=== PATIENT | male | born 1970 | race Caucasian/White ===

== ENCOUNTER 2017-04-26 20:01 | Emergency (ER) | payer SELFPAY ==
[~2017-04-26] VITALS: Ht 165.1 cm; Wt 71.7 kg
[2017-04-26] MEDS ORDERED: FLUORESCEIN OPHTH TEST STRIP. OD ONE (20:15)
[2017-04-26] MEDS ORDERED: TETRACAINE 0.5% OPHTH SOLUTION 4ML BOTTLE. OS ONE (20:15)
[2017-04-26 20:18] VITALS: BP 117/65
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
[2017-04-26] MEDS ORDERED: HYDR-971 PO (21:11)
[2017-04-26] MEDS ORDERED: ERYTHROMYCIN 0.5% OPHTH OINTMENT 1GM TUBE. OD ONE (21:15)
[2017-04-26] MEDS ORDERED: HYDROcodone/APAP 5/325MG 1 TAB TABLET PO ONE (21:15)
[2017-04-26] MEDS ORDERED: DIPHTH,PERTUSS(ACELL),TET TOX 0.5 ML DISP.SYRIN. VAX IM ONE (21:15)
== END 2017-04-26 21:12 | disposition home or self-care (01) ==
LOC: ER 20:01
DX: S05.01XA Injury of conjunctiva and corneal abrasion without foreign body, right eye, initial encounter (principal); T26.11XA Burn of cornea and conjunctival sac, right eye, initial encounter; Z87.820 Personal history of traumatic brain injury; X17.XXXA Contact with hot engines, machinery and tools, initial encounter; Y93.G3 Activity, cooking and baking; Y99.8 Other external cause status; Y92.89 Other specified places as the place of occurrence of the external cause
CPT/HCPCS: 90471; 90715; 99283-25

== ENCOUNTER 2017-04-29 22:29 | Emergency (ER) | payer SELFPAY ==
[~2017-04-29 22:29] MED LIST: HYDR-971 PO
[2017-04-29 22:35] VITALS: BP 122/68
[2017-04-29] MEDS ORDERED: KETO5DRO24 OD (22:53)
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
== END 2017-04-29 23:08 | disposition home or self-care (01) ==
LOC: ER 22:29
DX: S05.01XA Injury of conjunctiva and corneal abrasion without foreign body, right eye, initial encounter (principal); F41.9 Anxiety disorder, unspecified; F32.9 Major depressive disorder, single episode, unspecified; Z87.820 Personal history of traumatic brain injury; W22.8XXA Striking against or struck by other objects, initial encounter; Y93.89 Activity, other specified; Y92.89 Other specified places as the place of occurrence of the external cause; Y99.8 Other external cause status
CPT/HCPCS: 99283

== ENCOUNTER 2017-09-05 10:32 | Emergency (ER) | payer SELFPAY ==
[~2017-09-05 10:32] MED LIST changes: +KETO5DRO24 OD
[2017-09-05] MEDS ORDERED: NAPR500T PO (11:32)
[2017-09-05] MEDS ORDERED: CEPH-264 PO (11:32)
[2017-09-05] MEDS ORDERED: HYDR-2758 PO (11:32)
--- NOTE | 2017-09-05 11:32 | PHYS DOC ---
Past Medical History Past Medical History: Anxiety, Depression Additional Past Medical Histor: TBI, GUM DS Past Surgical History: Other Additional Past Surgical Histo: SKIN GRAFT, R FOOT, DENTAL Alcohol Use: Sober Drug Use: None Adult General Chief Complaint Chief Complaint: SKIN RASH/ABSCESS [facility] HPI He is a pleasant 46-year-old male with history of hidradenitis whose had multiple I&D's of his on her arms and his inguinal creases multiple times. He presents today with a localized lesion gotten progressively worse last several days. He denies any fevers, chest pain or shortness of breath but has had some mild chills with the symptoms. Patient admits he's had increased localized swelling and redness around this particular lesion on his left armpit. There is been no drainage, no trauma to his arm. Patient's pain is moderate at this time worse with range of motion and direct pressure over the wound. he has not taken anything [id number] to try to treat his symptoms. He has not been on antibiotics for some time. Review of Systems Review of Systems Constitutional: Denies fever she has had some chills. Eyes: Denies change in visual acuity, redness, or eye pain [] HENT: Denies nasal congestion or sore throat [] Respiratory: Denies cough or shortness of breath [] Cardiovascular: No additional information not addressed in HPI [] GI: Denies abdominal pain, nausea, vomiting, bloody stools or diarrhea [] : Denies dysuria or hematuria [] Musculoskeletal: Denies back pain or joint pain [] Integument: he has skin lesions in the armpits bilaterally Neurologic: Denies headache, focal weakness or sensory changes [] Endocrine: Denies polyuria or polydipsia [] Allergies Allergies Allergies Coded Allergies Type Severity Reaction Last Updated Verified No Known Drug Allergies 04/26/17 No Physical Exam Physical Exam Vital signs recorded on the chart within normal limits. Constitutional: Well developed, well nourished, no acute distress, non-toxic appearance. [] Cardiovascular:Heart rate regular rhythm, no murmur [] Lungs & Thorax: Bilateral breath sounds clear to auscultation [] Skin: Warm, dry, he has multiple areas of scar and healed hidradenitis noted in the left and right armpits. His particular issue in the left armpit demonstrates a small 1 cm area of erythema with mild soft tissue swelling and induration with no fluctuance. This is likely localized cellulitis and no obvious abscess that could be drained at this point. Extremities: No tenderness, Neurologic: Alert and oriented X 3, normal motor function, normal sensory function, no focal deficits noted. [] Psychologic: Affect normal, judgement normal, mood normal. [] Current Patient Data Vital Signs Vital Signs Date Time Temp Pulse Resp B/P (MAP) Pulse Ox O2 Delivery O2 Flow Rate FiO2 09/05/17 10:42 98.7 92 20 97 Room Air 98.7 EKG EKG [] Radiology/Procedures Radiology/Procedures [] Course & Med Decision Making Course & Med Decision Making Pertinent Labs and Imaging studies reviewed. (See chart for details) he with a history of hidradenitis requiring incision and drainage times although this lesion is relatively small I do not believe there is any fluid that required I& D at this time. Patient really needs to follow up with general surgery or plastic surgeon that can definitively fix this issue. I will provide him follow- up. [] Dragon Disclaimer Dragon Disclaimer This electronic medical record was generated, in whole or in part, using a voice recognition dictation system. Departure Departure Impression: Primary Impression: Hidradenitis axillaris Disposition: 01 HOME, SELF-CARE Condition: STABLE Referrals: NO PCP (PCP) Patient Instructions: Hidradenitis Suppurativa, Sweat Gland Abscess Additional Instructions: My discharge plan Follow up: In addition patient is asked to followup with their primary doctor, within a week for followup examination and to address patient's ongoing medical conditions. Because patient does not have a regular medical doctor, a local physician Resource Sheet will be provided to establish care primary care. Patient is advised that in the Emergency Department primary complaints are addressed and only in light of known signs and symptoms. Patient should return immediately to the emergency department if new signs and symptoms develop or patient's condition worsens in any way. At time of discharge patient was in stable condition and had verbalized understanding of the discharge instructions. Call the plastic surgeon below as it may help you treating his definitive issue Jorje Conway MD Plastic surgeon in [place], [place] Address: [address], [place] [address] Hours: Open today 9AM5PM Scripts Naproxen (NAPROSYN) 500 Mg Tablet 1 TAB PO BID, #14 TAB 1 Refill Prov: MARIBETH MEJIA MD 09/05/17 Cephalexin (KEFLEX) 500 Mg Capsule 1 CAP PO TID, #40 CAP Prov: MARIBETH MEJIA MD 09/05/17 Hydrocodone Bit/Acetaminophen (HYDROCODONE-APAP 5-325 ) 1 Each Tablet 1-2 TAB PO PRN Q6HRS Y for PAIN for 5 Days, #10 TAB 0 Refills Prov: MARIBETH MEJIA MD 09/05/17 MARIBETH MEJIA MD Sep 05, 2017 11:32
[2017-09-05 11:47] VITALS: BP 110/69
== END 2017-09-05 11:48 | disposition home or self-care (01) ==
LOC: ER 10:32
DX: L73.2 Hidradenitis suppurativa (principal); F41.9 Anxiety disorder, unspecified; F32.9 Major depressive disorder, single episode, unspecified; Z87.820 Personal history of traumatic brain injury
CPT/HCPCS: 99283

== ENCOUNTER 2019-01-14 08:38 | Outpatient (CLI) | payer OTHER ==
[2019-01-14] VITALS (10 sets, daily range): BP systolic 96–146; BP diastolic 60–80
[~2019-01-14] VITALS: Ht 165.1 cm; Wt 77.1 kg
[~2019-01-14 08:38] MED LIST changes: +ADAL40KI SQ; +ALPR0.5T6 PO; +ALPR1TAB6 PO; +BUPR300T3 PO; +CEPH-264 PO; +CETI10TA16 PO; +FLUO40CA9 PO; +HYDR-2761 PO; +HYDR-3164 PO; -HYDR-971 PO; +LAMO100T5 PO; +NAPR-683 PO; +PREG150C PO; +PROP40TA PO; +TRAZ-86 PO
[2019-01-14 09:08] LABS: BASO # 0.1 x10^3/uL (0.0-0.2); BASO % 1 % (0-3); EOS # 0.3 x10^3/uL (0.0-0.7); EOS % 2 % (0-3); HEMATOCRIT 45.7 % (39.0-53.0); HEMOGLOBIN 15.3 g/dL (13.0-17.5); LYMPH # 3.7 x10^3/uL (1.0-4.8); LYMPH % 22 % (24-48); MEAN CORPUSCULAR HEMOGLOBIN 30 pg (25-35); MEAN CORPUSCULAR HGB CONC 33 g/dL (31-37); MEAN CORPUSCULAR VOLUME 91 fL (79-100); MONO # 1.1 x10^3/uL (0.0-1.1); MONO % 7 % (0-9); NEUT # 11.2 x10^3uL (1.8-7.7); NEUT % 68 % (31-73); PLATELET COUNT 392 x10^3/uL (140-400); RED BLOOD COUNT 5.04 x10^6/uL (4.30-5.70); RED CELL DISTRIBUTION WIDTH 15.1 % (11.5-14.5); WHITE BLOOD COUNT 16.4 x10^3/uL (4.0-11.0)
[2019-01-14 09:28] LABS: PROTHROMBIN TIME PATIENT 12.3 SEC (11.7-14.0)
[2019-01-14] MEDS ORDERED: MIDAZOLAM HCL/PF 2 MG/2 ML VIAL. ONE (10:04)
[2019-01-14] MEDS ORDERED: fentaNYL PF VIAL 100 MCG/2 ML VIAL ONE (10:04)
[2019-01-14] MEDS ORDERED: LIDOCAINE WITH 8.4% SOD BICARB 3 ML DISP.SYRIN. ONE (10:05)
[2019-01-14] MEDS ORDERED: fentaNYL PF VIAL 100 MCG/2 ML VIAL IV ONE (10:15)
[2019-01-14] MEDS ORDERED: MIDAZOLAM HCL/PF 2 MG/2 ML VIAL. IV ONE (10:15)
[2019-01-14] MEDS ORDERED: LIDOCAINE WITH 8.4% SOD BICARB 3 ML DISP.SYRIN. IJ ONE (10:15)
--- NOTE | 2019-01-14 11:44 | NUR ---
Pt VSS. Pt denies any pain or SOB. Left lower back dressing c/d/i. Mr. Rios and his parents given discharge instructions. Pt walked out to outpatient entrance accompanied by parents.
--- NOTE | 2019-01-14 15:46 | RAD ---
CT-guided bone marrow biopsy. 01/14/2019 3:42 PM Indication: Leukocytosis, thrombocytopenia Discussion: The risks and benefits of the procedure, including but not limited to, bleeding and infection were discussed patient. Informed consent was obtained. The patient was brought to the CT scanner and placed in the prone position. A timeout procedure was performed. Securities Analyst CT imaging of the pelvis demonstrated left ilium amenable to bone marrow biopsy. The overlying soft tissues were prepped and draped using maximum sterile barrier technique. 1% lidocaine without epinephrine was administered for local anesthesia. Under intermittent CT guidance, an OncControl needle was advanced into the bone marrow of the left iliac crest. 2 Aspirates and 1 core biopsy samples were obtained. Samples were delivered to pathology was present at the time of procedure. The needle was removed and manual pressure held to achieve hemostasis. No immediate complications were identified. The procedure was performed under conscious sedation including continuous cardiopulmonary monitoring via dedicated sedation nurse. Sedation time: 20 minutes Impression: Successful CT-guided bone marrow biopsy of the left iliac crest . PQRS Compliance Statement: One or more of the following individualized dose reduction techniques were utilized for this examination: 1. Automated exposure control 2. Adjustment of the mA and/or kV according to patient size 3. Use of iterative reconstruction technique
--- NOTE | 2019-01-28 09:07 | PATHOLOGY ---
[facility] Accession Number: [id number] . 01 Material submitted: . PART A: BONE MARROW BIOPSY PART B: BONE MARROW CLOT PART C: BONE MARROW ASPIRATE SLIDES PART D: PERIPHERAL BLOOD SMEAR PART E: BONE MARROW FLOW . 01 Clinical history: . Leukocytosis/thrombocytosis . 02 Diagnosis: Peripheral smear: - Mild neutrophilic leukocytosis. - Borderline upper normal platelet count with several large platelets noted. . Bone marrow, aspirate smears, clot section, and core biopsy: - Normocellular to focally mildly hypercellular marrow showing trilineage hematopoiesis, no significant dyspoiesis, and focal mild megakaryocytic hyperplasia. - Focally adequate reticuloendothelial iron stores. . (JPM:regi; 01/25/2019) MBR/01/28/2019 . 02 Comment: The peripheral smear shows a mild neutrophilic leukocytosis and borderline upper normal platelet count with several large platelets noted. The bone marrow is normocellular to focally mildly hypercellular and shows trilineage hematopoiesis, no significant dyspoiesis, and mild megakaryocytic hyperplasia. The patient previously had lab studies in the doctor's office. 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 The patient has a history of mild neutrophilic leukocytosis and thrombocytosis since June of 2016. Would still rule out causes of a reactive leukocytosis and thrombocytosis. (JPM:regi; 01/25/2019) . Special stains performed: Iron stain performed on the aspirate smear and on B1 Reticulin stain performed on A1. . 02 Electronically signed: . Сергей Mcwilliams MD, Pathologist NPI- [id number] . 01 Gross description: . A. The specimen is received in formalin, labeled "Mario Barron BM BX" and consists of 2 brown bone cores measuring 0.7 cm and 0.9 cm in length and 0.2 cm in diameter. They are entirely submitted in A1 following decalcification. . B. The specimen is received in formalin, labeled "Mario Barron BM ASP clot" and consists of blood clot measuring 0.6 x 0.5 x 0.2 cm which is entirely submitted in B1. (SDY; 01/14/2019) SYU/SYU . 02 Microscopic: . CBC Data (01/14/19): WBC 16.4 KCMM. The automated WBC differential reveals 68% neutrophils, 22% lymphs, 7% monos, 2% eos, and 1% baso. The RBC count is 5.04 M/CMM, hemoglobin 15.3 G/DL, hematocrit 45.7%, MCV 91 FL, MCH 30 PG, MCHC 33 G/DL, RDW 15.1%. The platelet count is 392 K/CMM. . Peripheral Blood: The peripheral smear is reviewed. The WBC count is mildly increased. There is an absolute neutrophilia. The WBC differential reveals a predominance of segmented neutrophils, with smaller populations of lymphocytes and monocytes and an occasional eosinophil noted. Neutrophils do not show dysplastic changes. There is an occasional circulating myelocyte. There is no significant neutrophilic left shift with myelocyte bulge. There are no circulating blasts. There is no leukoerythroblastic reaction. The lymphocyte population consists predominantly of small lymphocytes. There is no absolute basophilia. Red blood cells predominantly appear normochromic and normocytic. Red blood cells show no significant anisopoikilocytosis. Platelets are borderline upper normal in number. Platelets vary in size with several large platelets noted. . Bone Marrow Aspirate: Two Webb's-stained and one iron-stained aspirate smears are examined. The smears contain multiple marrow particles and focal small platelet clumps. The M/E ratio is within normal range and is approximately 4:1. Erythroid maturation appears normoblastic. There are no megaloblastic or overt dysplastic changes. Granulopoiesis qualitatively appears normal. There are no obvious dysplastic changes. There is no significant left shift with myelocyte bulge. There is no increase of blasts. Megakaryocytes are present and are focally clustered. The megakaryocytes are of variable ploidy. Several of the megakaryocytes are large and have hyperlobulated nuclei. Plasma cells are not increased. There is no apparent increase of lymphocytes. There are no cells foreign to the marrow. The iron stain shows focal presence of stainable iron within some of the particles. There are no ringed sideroblasts. . Bone Marrow Biopsy and Cell Clot: Sections of the bone marrow biopsy reveal a segment of bone marrow showing focal aspiration artifact. Preserved areas of the biopsy range from 20-30% up to 50-60% cellular. The clot section contains a few small marrow particles which range between 30% and 50% cellular. There is trilineage hematopoiesis. There is a good admixture of erythroid and granulocytic precursors, which are present in varying stages of maturation. Megakaryocytes are present and are focally clustered and overall may be mildly increased. The megakaryocytes are of variable ploidy. Some of the megakaryocytes are large and have hyperlobulated nuclei. There is no increase of plasma cells. There are no abnormal lymphoid aggregates, granulomas, or cells foreign to the marrow. A reticulin stain obtained on the biopsy shows no increase of reticulin fibers. An iron stain obtained on the clot section shows focal reticuloendothelial iron stores. No ringed sideroblasts are identified. . Special studies: Bone marrow submitted for flow cytometry has a viability of 99.3%. Granulocytes comprise 73.9% of total cells and show phenotypic evidence of maturation. Monocytes comprise 3.5% of total cells. CD45 DIM, CD34 positive cells comprise 0.3% of total cells. Lymphocytes comprise 18.1% of total cells. T-cells comprise 82% of lymphoid cells and show a CD4/CD8 ratio of 2.1. NK-cells comprise 3% of lymphoid cells. Mature B-cells comprise 10% of lymphoid cells and are polyclonal with a kappa:lambda ratio of 1.3. . Bone marrow submitted for cytogenic analysis shows a normal male karyotype in all cells analyzed. (NAEM:regi; 01/25/2019) . . . 02 Pathologist provided ICD-10: D72.829, D47.3 . 02 CPT . 329972, 528981, 118799, 464001, 063209, 978807, 446882, [id number] Specimen Comment: A courtesy copy of this report has been sent to Specimen Comment: [phone], , . Specimen Comment: Report sent to ,DR GLOVER / DR CANTU Performed at: [address] [facility] [address], [place] [id number] MD Pankaj Parkinson MD Phone: [phone] Performed at: [address] [facility] [address], [place] [id number] MD Сергей Mcwilliams MD Phone: [phone]
== END 2019-01-14 11:56 | disposition home or self-care (01) ==
LOC: INTRAD 08:38
PROVIDERS: ATTEND Internal Medicine Hematology & Oncology
DX: D72.828 Other elevated white blood cell count (principal); D69.6 Thrombocytopenia, unspecified; F17.200 Nicotine dependence, unspecified, uncomplicated; Z91.018 Allergy to other foods; Z79.899 Other long term (current) drug therapy
CPT/HCPCS: 36415; 38222; 77012; 85025; 85610; 88184; 88185; 88237; 99152; J2250; J3010; 88305; 88311; 88313

== ENCOUNTER 2020-03-12 13:54 | Emergency (ER) | payer MEDICAID, OTHER ==
[~2020-03-12] VITALS: Ht 167.6 cm; Wt 90.9 kg
[~2020-03-12 13:54] MED LIST changes: +TRAZ-123 PO; -TRAZ-86 PO
[2020-03-12 14:43] VITALS: BP 160/63
[2020-03-12] MEDS ORDERED: HYDR50TA PO (15:34)
--- NOTE | 2020-03-12 15:49 | PHYS DOC ---
Past Medical History Past Medical History: Anxiety, Arthritis, Depression, Fibromyalgia Additional Past Medical Histor: TBI, Hydranitis Supertiva, essential tremors Past Surgical History: Other Additional Past Surgical Histo: SKIN GRAFT, R FOOT, DENTAL, hernia repair Smoking Status: Current Some Day Smoker Alcohol Use: Occasionally Drug Use: None Adult General Chief Complaint Chief Complaint: DRUG ABUSE HPI HPI Patient is a 49 year old male with history of anxiety presents with palpitations, tremors and increased anxiety after running out of Xanax 3 days ago. Patient states he is not due for a Xanax for a refill for another two day and that he has been taking an extra daily dose of Xanax for the past two weeks. rash seizures, chest pain, shortness of breath or sweats. No nausea vomiting. No leg pain or swelling. Patient has not contacted his prescribing physician for refill but did arrive to the ED via EMS. Denies illicit drug use. [] Review of Systems Review of Systems ROS as per HPI [] All other systems were reviewed and found to be within normal limits, except as documented in this note. Current Medications Current Medications Current Medications Medications (Trade) Dose Ordered Sig/Felisa Start Time Stop Time Status Last Admin Dose Admin Hydroxyzine HCl (Atarax) 50 mg ONCE ONCE 03/12/20 16:00 03/12/20 16:01 Allergies Allergies Allergies Coded Allergies Type Severity Reaction Last Updated Verified tomato Adverse Reaction Intermediate interacts with home meds 12/06/18 Yes Uncoded Allergies Type Severity Reaction Last Updated Verified flour Adverse Reaction Intermediate interacts with home medications 12/06/18 Physical Exam Physical Exam Constitutional: Well developed, well nourished, anxious, tremulous. [] HENT: Normocephalic, atraumatic, bilateral external ears normal, oropharynx moist, no oral exudates, nose normal. [] Eyes: PERRLA, EOMI, conjunctiva normal. [] Neck: Normal range of motion, no tenderness. [] Cardiovascular:Heart rate regular rhythm, no murmur [] Lungs & Thorax: Bilateral breath sounds clear to auscultation [] Abdomen: Bowel sounds normal, soft, no tenderness. [] Skin: Warm, dry. [] Back: No tenderness. [] Extremities: No tenderness, no edema. [] Neurologic: Alert and oriented X 3, normal motor function, normal sensory function, no focal deficits noted. [] Psychologic: Affect anxious, judgement normal, mood normal. [] Current Patient Data Vital Signs Vital Signs Date Time Temp Pulse Resp B/P (MAP) Pulse Ox O2 Delivery O2 Flow Rate FiO2 03/12/20 14:43 98.0 81 24 160/63 (95) 95 Room Air 98.0 EKG EKG [] Radiology/Procedures Radiology/Procedures [] Course & Med Decision Making Course & Med Decision Making Pertinent Labs and Imaging studies reviewed. (See chart for details) [Acute benzodiazepine withdrawal. Atarax given. Will continue supportive care with follow-up with prescribing physician for management of controlled substances. term precautions reviewed.] Dragon Disclaimer Dragon Disclaimer This electronic medical record was generated, in whole or in part, using a voice recognition dictation system. Departure Departure Impression: Primary Impression: Acute drug withdrawal syndrome Additional Impression: Benzodiazepine dependence Disposition: 01 HOME/RESIDENCE PRIOR TO ADM Condition: STABLE Patient Instructions: Benzodiazepine Withdrawal Additional Instructions: Please take newly prescribed medications as directed. Contact your prescribing doctor regarding your next Xanax refill. Scripts Hydroxyzine Hcl (HYDROXYZINE HCL) 50 Mg Tablet 50 MG PO QID, #12 TAB Prov: YARELIS ROBLEDO DO 03/12/20 Problem Qualifiers YARELIS ROBLEDO DO Mar 12, 2020 15:49
[2020-03-12] MEDS ORDERED: hydrOXYzine 25 MG TABLET PO ONE (16:00)
== END 2020-03-12 15:52 | disposition home or self-care (01) ==
LOC: ER 13:54
DX: F19.239 Other psychoactive substance dependence with withdrawal, unspecified (principal); R00.2 Palpitations; R25.1 Tremor, unspecified; F41.9 Anxiety disorder, unspecified; F17.200 Nicotine dependence, unspecified, uncomplicated; Z88.8 Allergy status to other drugs, medicaments and biological substances
CPT/HCPCS: 99283